=== PATIENT | male | born 1960 | race Caucasian/White ===

== ENCOUNTER 2023-06-05 11:04 | Day surgery (SDC) | payer OTHER ==
[2023-06-05] MEDS: Lactated Ringers 1,000 ML IV SCH (09:15)
[~2023-06-05 11:04] MED LIST: Sodium Chloride 0.9% 10 ML Syringe FLUSH PRN
[2023-06-05] MEDS ORDERED: Midazolam 1 MG/ML 2 ML SDV IV ONE (11:05)
[2023-06-05] MEDS ORDERED: Propofol 200 MG/20 ML SDV IV ONE (11:05)
== END 2023-06-05 12:10 | disposition home or self-care (01) ==
LOC: KA.SDS 11:04
PROVIDERS: ATTEND Family Medicine
DX: Z12.11 Encounter for screening for malignant neoplasm of colon (principal); K64.8 Other hemorrhoids; I10 Essential (primary) hypertension; F10.20 Alcohol dependence, uncomplicated; E78.00 Pure hypercholesterolemia, unspecified; E66.9 Obesity, unspecified; Z68.33 Body mass index [BMI] 33.0-33.9, adult; N40.1 Benign prostatic hyperplasia with lower urinary tract symptoms; K70.9 Alcoholic liver disease, unspecified; Z87.891 Personal history of nicotine dependence; Z79.82 Long term (current) use of aspirin; Z79.899 Other long term (current) drug therapy
CPT/HCPCS: J2250; J2704; J7120

== ENCOUNTER 2024-03-28 10:13 | Emergency (ER) | payer OTHER ==
[2024-03-28 10:48] LABS: BASOPHILS ABSOLUTE AUTO 0.06 10^3/uL (0.00-0.10); BASOPHILS PERCENT AUTO 0.8 % (0.0-1.0); EOSINOPHILS ABSOLUTE AUTO 0.13 10^3/uL (0.10-0.30); EOSINOPHILS PERCENT AUTO 1.8 % (1.0-3.0); HEMATOCRIT 40.5 % (40.0-52.0); HEMOGLOBIN 13.6 g/dL (13.0-17.0); IMMATURE GRAN ABSOLUTE AUTO 0.01 10^3/uL (0.00-0.50); IMMATURE GRAN PERCENT AUTO 0.1 % (0.0-5.0); LYMPHOCYTES ABSOLUTE AUTO 1.49 10^3/uL (1.00-4.00); MEAN CORPUSCULAR HEMOGLOBIN 34.2 pg (27.0-31.0); MEAN CORPUSCULAR HGB CONC 33.6 g/dL (32.0-36.0); MEAN CORPUSCULAR VOLUME 101.8 fL (82.0-92.0); MEAN PLATELET VOLUME 9.3 fL (7.4-10.4); MONOCYTES PERCENT AUTO 11.3 % (2.0-8.0); NEUTROPHILS ABSOLUTE AUTO 4.62 10^3/uL (2.50-7.00); PLATELET COUNT,PLT 144 10^3/uL (150-400); RED BLOOD CELL COUNT 3.98 10^6/uL (4.50-6.00); RED CELL DISTRIBUTION WIDTH 13.1 % (11.5-14.5); WHITE BLOOD CELL COUNT,WBC 7.11 10^3/uL (5.00-10.00)
[2024-03-28 11:14] LABS: ALBUMIN 3.39 g/dL (3.40-5.00); BILIRUBIN TOTAL 0.9 mg/dL (0.2-1.0); CALCIUM 8.3 mg/dL (8.7-10.3); CARBON DIOXIDE,CO2 26.8 mmol/L (21.0-32.0); CREATININE 0.85 mg/dL (0.51-1.17); EST CRCL DRUG DOSING (CG) 86.06 mL/min
[2024-03-28] MEDS: Aluminum Hydroxide/Magnesium Hydroxide/Simethicone Susp 30 ML Cup PO ONE (11:23)
[2024-03-28] MEDS: Alum Hydrox/Mag Hydrox/Simeth 30 ML, Lidocaine 2% 15 ML PO ONE (11:23)
[2024-03-28] MEDS: Aluminum Hydroxide/Magnesium Hydroxide/Simethicone Susp 30 ML Cup ONE (11:24)
[2024-03-28 11:26] LABS: POTASSIUM,K 3.8 mmol/L (3.5-5.1)
== END 2024-03-28 12:50 | disposition home or self-care (01) ==
LOC: KA.ED 10:13
DX: R07.89 Other chest pain (principal); I10 Essential (primary) hypertension; E78.00 Pure hypercholesterolemia, unspecified; E66.9 Obesity, unspecified; E11.9 Type 2 diabetes mellitus without complications; Z68.32 Body mass index [BMI] 32.0-32.9, adult; Z79.82 Long term (current) use of aspirin; Z79.899 Other long term (current) drug therapy; Z90.49 Acquired absence of other specified parts of digestive tract
CPT/HCPCS: 71045; 80053; 84484; 85025; 99285; A9270-GY

== ENCOUNTER 2024-04-08 06:59 | Day surgery (SDC) | payer OTHER ==
[2024-04-08] MEDS ORDERED: Sodium Chloride 0.9% 10 ML Syringe FLUSH PRN (07:00)
[2024-04-08] MEDS: Lactated Ringers 1,000 ML IV SCH (07:09)
[2024-04-08] MEDS ORDERED: Midazolam 1 MG/ML 2 ML SDV ONE (07:49)
[2024-04-08] MEDS ORDERED: Glycopyrrolate 0.2 MG/ML SDV ONE (07:49)
[2024-04-08] MEDS ORDERED: Propofol 200 MG/20 ML SDV ONE (07:49)
[2024-04-08] MEDS ORDERED: Lidocaine 2% 100 MG/5 ML Syringe ONE (07:49)
== END 2024-04-08 10:01 | disposition home or self-care (01) ==
LOC: KA.SDS 06:59
PROVIDERS: ATTEND Family Medicine
DX: K29.50 Unspecified chronic gastritis without bleeding (principal); K44.9 Diaphragmatic hernia without obstruction or gangrene; D50.9 Iron deficiency anemia, unspecified; I10 Essential (primary) hypertension; E78.00 Pure hypercholesterolemia, unspecified; N40.1 Benign prostatic hyperplasia with lower urinary tract symptoms; E66.9 Obesity, unspecified; Z79.82 Long term (current) use of aspirin; Z79.899 Other long term (current) drug therapy
CPT/HCPCS: 00731; J1596; J2250; J2704; J3490; J7120